=== PATIENT | male | born 2000 | race Caucasian/White ===

== ENCOUNTER 2023-05-03 13:09 | Emergency (ER) | payer SELFPAY ==
[~2023-05-03] VITALS: Ht 180.3 cm; Wt 86.2 kg
[2023-05-03 13:45] VITALS: BP 129/71
[2023-05-03] MEDS ORDERED: LIDOCAINE MPF 2% 100 MG/5 ML VIAL INJ ONE (14:00)
[2023-05-03] MEDS ORDERED: CLIN-223 PO (14:44)
[2023-05-03] MEDS ORDERED: IBUP-2213 PO (14:44)
[2023-05-03] MEDS ORDERED: LIDOCAINE MPF 1% 5 ML ONE ×2 (15:01)
--- NOTE | 2023-05-03 16:13 | NUR ---
Patient discharged with v/s stable. Written and verbal after care instructions given and explained. Patient alert, oriented and verbalized understanding of instructions. Ambulatory with steady gait. All questions addressed prior to discharge. ID band removed. Patient advised to follow up with PMD. Rx of clindamycin, ibuprofen given. Patient educated on indication of medication including possible reaction and side effects. Opportunity to ask questions provided and answered.
== END 2023-05-03 16:13 | disposition home or self-care (01) ==
LOC: MED 13:09
DX: L72.3 Sebaceous cyst (principal); L08.89 Other specified local infections of the skin and subcutaneous tissue; Z79.1 Long term (current) use of non-steroidal anti-inflammatories (NSAID); Z79.2 Long term (current) use of antibiotics
CPT/HCPCS: 10060; 90471; 90715; 99284; J2001